=== PATIENT | female | born 1960 | race Caucasian/White ===

== ENCOUNTER 2016-10-12 10:44 | Inpatient (IN) | payer OTHER ==
[~2016-10-12] VITALS: Ht 162.6 cm; Wt 85.7 kg
[2016-10-12 11:39] LABS: BASOPHILS 0.7 % (0-2); EOSINOPHILS 0 % (0-7); HEMATOCRIT 46.2 % (36.0-48.0); HEMOGLOBIN 15.4 g/dL (12-16); IMMATURE GRANULOCYTES 0.3 % (0-5); LYMPHOCYTES 23.6 % (15-50); MCH 30.1 pg (26.0-34.0); MCHC 33.3 g/dL (31.0-37.0); MCV 90.2 fL (80.0-100.0); MEAN PLATELET VOLUME 10.6 fL (7.4-10.4); MONOCYTES 5.6 % (2-11); NEUTROPHILS 69.8 % (40-80); RBC 5.12 10x6/uL (4.00-5.40); RDW 12.9 % (11.5-14.5); WBC 3.1 10x3/uL (4.8-10.8)
[2016-10-12 11:47] LABS: PLATELET COUNT 74 10x3/uL (130-400)
[2016-10-12 11:55] LABS: ANION GAP 15.1 mmol/L (8-16); BILIRUBIN - TOTAL 0.66 mg/dL (0.2-1.3); CALCIUM 8.6 mg/dL (8.5-10.1); CARBON DIOXIDE 23.9 mmol/L (21.0-32.0); CREATININE - SERUM 0.9 mg/dL (0.6-1.3); PROTEIN - SERUM 6.7 g/dL (6.4-8.2)
[2016-10-12 12:00] LABS: PLATELET ESTIMATE DECREASED
[2016-10-12 13:35] LABS: APPEARANCE CLOUDY (CLEAR); BACTERIA MODERATE /hpf (NONE SEEN); BILIRUBIN NEGATIVE (NEGATIVE); CALCIUM OXALATE CRYSTALS 25-50 /hpf (NONE SEEN); COLOR AMBER (YELLOW); EPITHELIAL CELLS 0-5 /hpf (0-5); GLUCOSE NEGATIVE (NEGATIVE); KETONE SMALL mg/dL (NEGATIVE); LEUKOCYTE ESTERASE NEGATIVE (NEGATIVE); MUCUS <1+ /lpf (NONE SEEN); NITRITE NEGATIVE (NEGATIVE); PROTEIN 1+ mg/dL (NEGATIVE); RED CELLS - URINE RARE /hpf (0-5); SPECIFIC GRAVITY 1.025 (1.005-1.020); UROBILINOGEN NORMAL (NORMAL); WHITE CELLS - URINE 0-5 /hpf (0-5)
--- NOTE | 2016-10-12 16:19 | NUR ---
PATIENT RECEIVED TO FLOOR FROM ER VIA STRETCHER. TRANSFERRED SELF TO BED AND POSITIONED SELF FOR COMFORT. ORIENTED TO ROOM. SIDE RAILS UP X2. BED IN LOW POSITION. CALL LIGHT IN REACH.
[2016-10-12] MEDS ORDERED: MULTIPLE VITAMI1 TA1 PO (16:25)
[2016-10-12] MEDS ORDERED: BIOTIN5 MG PO (16:25)
[2016-10-12] MEDS ORDERED: MELATONIN10 M1 PO (16:25)
[2016-10-12] MEDS ORDERED: VITAMIN B-121000 MCG PO (16:26)
[2016-10-12] MEDS ORDERED: OYSCO 500+D TAB1 TAB PO (16:26)
[2016-10-12 16:27] VITALS: BP 99/56
[2016-10-12 16:28] VITALS: BP 99/56; BMI 32.5
--- NOTE | 2016-10-12 16:42 | NUR ---
IVF INITIATED PER ORDER TO RIGHT AC IV. IV PATENT. NO REDNESS OR INFLAMMATION NOTED TO SITE. FLUSHES EASY. SIDE RAILS UP X2. BED IN LOW POSITION. CALL LIGHT IN REACH.
--- NOTE | 2016-10-12 18:15 | NUR ---
PATIENT IN LOW HINKLE POSITION RESTING QUIETLY WITH EYES CLOSED. RESPIRATIONS EVEN AND UNLABORED. SIDE RAILS UP X2. BED IN LOW POSITION. CALL LIGHT IN REACH.
--- NOTE | 2016-10-12 19:50 | NUR ---
PATIENT RESTING IN BED WITH EYES CLOSED AND GUEST AT BEDSIDE. NO VISIBLE SIGNS OF DISTRESS. BED IN LOWEST POSITION AND CALL LIGHT WITHIN REACH.
[2016-10-12 20:00] VITALS: BP 95/40
--- NOTE | 2016-10-12 20:45 | NUR ---
I ASSISTED THE PATIENT TO THE RESTROOM AND SHE WAS VOMITING. THE PATIENT STATED "THE ZOFRAN IS NOT WORKING". I CALLED DR. MEDINA WHO ORDERED PHENERGAN IM.
[2016-10-12 21:23] LABS: APPEARANCE HAZY (CLEAR); BILIRUBIN NEGATIVE (NEGATIVE); COLOR DK YELLOW (YELLOW); GLUCOSE NEGATIVE (NEGATIVE); KETONE MODERATE mg/dL (NEGATIVE); LEUKOCYTE ESTERASE TRACE (NEGATIVE); NITRITE POSITIVE (NEGATIVE); PROTEIN TRACE mg/dL (NEGATIVE); SPECIFIC GRAVITY 1.025 (1.005-1.020); UROBILINOGEN NORMAL (NORMAL)
[2016-10-12 21:24] LABS: BACTERIA MODERATE /hpf (NONE SEEN); EPITHELIAL CELLS 0-5 /hpf (0-5); MUCUS <1+ /lpf (NONE SEEN); RED CELLS - URINE NONE SEEN /hpf (0-5); WHITE CELLS - URINE 0-5 /hpf (0-5)
[2016-10-13] VITALS (7 sets, daily range): BP systolic 80–103; BP diastolic 33–58
[2016-10-13 05:53] LABS: ALBUMIN 2.5 g/dL (3.4-5.0); ALKALINE PHOSPHATASE 77 U/L (46-116); ALT (SGPT) 50 U/L (10-68); BILIRUBIN - TOTAL 0.56 mg/dL (0.2-1.3); CALC OSMOLALITY 280 mosm/kg (275-300); CALCIUM 8.4 mg/dL (8.5-10.1); CARBON DIOXIDE 27.1 mmol/L (21.0-32.0); CHLORIDE - SERUM 106 mmol/L (98-107); CREATININE - SERUM 0.7 mg/dL (0.6-1.3); GLUCOSE 93 mg/dL (74-106); POTASSIUM - SERUM 3.9 mmol/L (3.5-5.1); SODIUM 140 mmol/L (136-145); UREA NITROGEN 17 mg/dL (7-18); eGFR NON AFRICAN AMERICAN > 90 mL/min (90-120)
[2016-10-13 06:02] LABS: HEMATOCRIT 42.5 % (36.0-48.0); MCH 29.9 pg (26.0-34.0); MCHC 32.9 g/dL (31.0-37.0); MCV 90.6 fL (80.0-100.0); MEAN PLATELET VOLUME 11.7 fL (7.4-10.4); PLATELET COUNT 77 10x3/uL (130-400); RBC 4.69 10x6/uL (4.00-5.40); RDW 13.1 % (11.5-14.5); WBC 2.9 10x3/uL (4.8-10.8)
[2016-10-13 06:03] LABS: INR 0.97 (0.85-1.17); PROTIME 12.7 SECONDS (11.6-15.0)
[2016-10-13 06:04] LABS: APTT 35.6 SECONDS (22.8-39.4)
[2016-10-13 06:18] LABS: D-DIMER-QUANTITATIVE 7.05 ug/mLFEU (0.20-0.54)
[2016-10-13 06:51] LABS: LYMPHOCYTES 25 % (15-50); NEUTROPHILS 55 % (40-80); PLATELET ESTIMATE DECREASED
--- NOTE | 2016-10-13 07:41 | NUR ---
AWAKE AND ALERT. ORIENTED X3. C/O HEADACHE THIS AM. WILL MONITOR. LUNGS ARE CLEAR BIALTERALLY, NO COUGH NOTED. SKIN IS INTACT WITHOUT REDNESS. SCANT EDEMA NOTED TO LOWER EXTREMETY. IV TO RIGHT AC IS PATENT WITHOUT REDNESS AT INSERTION SITE. DENIES NEEDS. BP LOW THIS AM.
--- NOTE | 2016-10-13 09:12 | NUR ---
* Is the patient Alert and Oriented? Yes 0 * How many steps to enter\exit or inside your home? 3 FLIGHT 0 * PCP [facility] 0 * [facility] [address] * Preadmission Environment Home Alone 0 * ADLs Independent 0 * Equipment None 0 * Community resources currently utilized None 0 * Additional services required to return to the preadmission environment? No 0 * Can the patient safely return to the preadmission environment? Yes 0 * Has this patient been hospitalized within the prior 30 days at any hospital? No 0 Grand Total: 0 Patient Name: WAQAS POOL Admission Status: ER Accout number: [id number] Admission Date: 10-12-2016 : 1960 Admission Diagnosis: Attending: MERCEDES Current LOS: 1 Anticipated DC Date: Planned Disposition: Primary Insurance: [facility] [place] Discharge Planning Comments: CM met with patient to assess discharge planning/needs. Patient states her discharge plan is to return home where she lives independently & is safe. She states that she has 3 flights of stairs and is fine with them. She stated that she would have a friend drive her home but would not give a name. She denies any CM/HH needs at this time. CM will continue to follow and assist as needed. PCP: [facility] [address] [place] [employer] Supervisor: Almaz Pinzon
--- NOTE | 2016-10-13 10:00 | NUR ---
ATE ALMOST ALL OF BREAKFAST. DENIES NEEDS. NO C/O AT THIS TIME.
--- NOTE | 2016-10-13 11:08 | NUR ---
NUTRITION MONITORING & EVAL. PT WITH HISTORY OF GASTRIC SLEEVE. REQUESTING PROTEIN SUPPLEMENT. PROVIDED PROTEINEX LIQUID SUPPLEMENT/[address] FOLLOWING
--- NOTE | 2016-10-13 15:33 | NUR ---
TEMP 103. BP 107/33. GIVEN 800 MG IBUPORFEN PO AND STARTED LEVAQUIN. WILL MONITOR.
--- NOTE | 2016-10-13 15:43 | NUR ---
TEMP UP TO 103.1. WILL GIVE LEVAQUIN AND IBUPROFEN. WILL MONITOR.
--- NOTE | 2016-10-13 16:45 | NUR ---
TEMP DOWN TO 100.5 BP AT 80/42. CHEIKH WILCOX NOTIFIED OF SAME. NEW ORDERS RECEIVED TO GIVE BOLUS.
--- NOTE | 2016-10-13 18:08 | NUR ---
REQUESTED AND GIVEN ONE HYDROCODONE PO FOR C/O HEADACHE AND NECK PAIN LEVEL 8. ALSO GIVEN 25MG PHENERGRAN IM FOR CONTINUED C/O NAUSEA. WILL MONITOR.
--- NOTE | 2016-10-13 19:55 | NUR ---
LYING IN BED AWAKE, ASSESSMENT COMPLETED, NO ACUTE DISTRESS NOTED, VSS, DENIES PAIN OR NEEDS AT THIS TIME, IV INFUSING TO R AC, SR'S UP, CL IN REACH, WILL MONITOR
--- NOTE | 2016-10-13 21:40 | NUR ---
MEDS GIVEN PER MAR, HÉCTOR WELL, DENIES NEEDS, FALL PRECAUTIONS IN PLACE, CL IN REACH
--- NOTE | 2016-10-13 23:50 | NUR ---
RESTING WITH EYES CLOSED, RESP WITH EASE, NO DISTRESS NOTED, SR'S UP, CL IN REACH
[2016-10-14] VITALS: BP 77/46
--- NOTE | 2016-10-14 01:27 | NUR ---
RESTING WITH EYES CLOSED, NO DISTRESS NOTED, FALL PRECAUTION IN PLACE, CL IN REACH
[2016-10-14 04:00] VITALS: BP 97/51
[2016-10-14 05:04] LABS: BASOPHILS 1.1 % (0-2); EOSINOPHILS 0 % (0-7); HEMATOCRIT 38.9 % (36.0-48.0); HEMOGLOBIN 12.6 g/dL (12-16); IMMATURE GRANULOCYTES 0.4 % (0-5); LYMPHOCYTES 25.9 % (15-50); MCH 29.6 pg (26.0-34.0); MCHC 32.4 g/dL (31.0-37.0); MCV 91.5 fL (80.0-100.0); MEAN PLATELET VOLUME 11.7 fL (7.4-10.4); MONOCYTES 5.6 % (2-11); RBC 4.25 10x6/uL (4.00-5.40); RDW 13.2 % (11.5-14.5); WBC 2.7 10x3/uL (4.8-10.8)
[2016-10-14 05:12] LABS: PLATELET COUNT 55 10x3/uL (130-400)
[2016-10-14 05:31] LABS: ALBUMIN 1.9 g/dL (3.4-5.0); ANION GAP 12.3 mmol/L (8-16); BILIRUBIN - TOTAL 0.42 mg/dL (0.2-1.3); CALCIUM 7.7 mg/dL (8.5-10.1); CARBON DIOXIDE 23.6 mmol/L (21.0-32.0); POTASSIUM - SERUM 3.9 mmol/L (3.5-5.1); PROTEIN - SERUM 4.8 g/dL (6.4-8.2)
[2016-10-14 05:32] LABS: CREATININE - SERUM 0.9 mg/dL (0.6-1.3)
--- NOTE | 2016-10-14 07:30 | NUR ---
AWAKE AND ALERT. ORIENTED X3. NO C/O AT THIS TIME. LUNGS ARE CLEAR BILATERALLY, OCCASSIONAL DRY COUGH NOTED. SKIN IS INTACT WITHOUT REDNESS. SCANT EDEMA NOTED TO BILATERAL LE. WILL MONITOR. IV TO RIGHT AC IS PATENT WITHOUT REDNESS AT INSERTION SITE. DENIES NEEDS AT THIS TIME.
--- NOTE | 2016-10-14 09:00 | NUR ---
ATE SOME OF BREAKFAST. STATED SHE IS ACTUALLY HUNGRY THIS AM. WILL MONITOR.
[2016-10-14 09:17] VITALS: BP 83/42
[2016-10-14 09:31] LABS: INR 1.09 (0.85-1.17)
[2016-10-14 09:34] LABS: APTT 43.9 SECONDS (22.8-39.4)
[2016-10-14 10:19] LABS: HEPATITIS C ANTIBODY <0.1 (0.0-0.9)
--- NOTE | 2016-10-14 11:23 | NUR ---
RESTING QUIETLY WITH EYES CLOSED. DENIES NEEDS.
--- NOTE | 2016-10-14 11:51 | NUR ---
IV SITED TO RIGHT FOREARM AFTER ONE ATTEMPT WITH 20 G. OLD SITE STILL PATENT JUST BEEPS WITH PRESSURE. LEFT INTACT.
[2016-10-14 11:54] VITALS: BP 80/46
[2016-10-14 15:31] VITALS: BP 95/56
--- NOTE | 2016-10-14 18:58 | NUR ---
DIDN'T EAT BUT 2 BITES OF SUPPER. NEEDS TO BE NPO FOR CT OF ABDOMEN. NO CHANGES AT THIS TIME. DENIES NEEDS.
[2016-10-14 23:11] VITALS: BP 94/39
[2016-10-15] VITALS (8 sets, daily range): BP systolic 78–112; BP diastolic 49–93
--- NOTE | 2016-10-15 03:50 | NUR ---
SERA RETURNED PAGE AND ORDERED TORADOL IM.
[2016-10-15 05:09] LABS: BASOPHILS 1.4 % (0-2); EOSINOPHILS 0 % (0-7); HEMATOCRIT 35.4 % (36.0-48.0); HEMOGLOBIN 11.7 g/dL (12-16); IMMATURE GRANULOCYTES 0.6 % (0-5); LYMPHOCYTES 35.6 % (15-50); MCH 29.5 pg (26.0-34.0); MCHC 33.1 g/dL (31.0-37.0); MEAN PLATELET VOLUME 12.2 fL (7.4-10.4); MONOCYTES 11.4 % (2-11); PLATELET COUNT 60 10x3/uL (130-400); RBC 3.97 10x6/uL (4.00-5.40)
[2016-10-15 05:22] LABS: MCV 89.2 fL (80.0-100.0); WBC 3.5 10x3/uL (4.8-10.8)
[2016-10-15 05:24] LABS: ALBUMIN 1.7 g/dL (3.4-5.0); ALKALINE PHOSPHATASE 63 U/L (46-116); ALT (SGPT) 47 U/L (10-68); CALC OSMOLALITY 281 mosm/kg (275-300); CALCIUM 7.5 mg/dL (8.5-10.1); CARBON DIOXIDE 21.4 mmol/L (21.0-32.0); CHLORIDE - SERUM 111 mmol/L (98-107); CREATININE - SERUM 0.8 mg/dL (0.6-1.3); GLUCOSE 98 mg/dL (74-106); PROTEIN - SERUM 4.1 g/dL (6.4-8.2); SODIUM 141 mmol/L (136-145); UREA NITROGEN 16 mg/dL (7-18); eGFR NON AFRICAN AMERICAN 79 mL/min (90-120)
[2016-10-15 05:30] LABS: POTASSIUM - SERUM 3.3 mmol/L (3.5-5.1)
[2016-10-15 05:59] LABS: APTT 43.2 SECONDS (22.8-39.4); INR 1.2 (0.85-1.17); PROTIME 15.1 SECONDS (11.6-15.0)
--- NOTE | 2016-10-15 07:48 | NUR ---
PRN ZOFRAN ADMINISTERED AT THIS TIME FOR NAUSEA WITHOUT EMESIS. PT REMAINS NPO FOR BONE MARROW BIOPSY. WILL CONTINUE WITH PLAN OF CARE. CALL LIGHT IN REACH.
--- NOTE | 2016-10-15 08:15 | NUR ---
PT TAKEN FOR BONE MARROW BIOPSY AT THIS TIME. WILL MONITOR PT WHEN SHE RETURNS TO FLOOR.
--- NOTE | 2016-10-15 09:25 | NUR ---
BACK TO ROOM FROM BONE MARROW BIOPSY AT THIS TIME. VITAL SIGNS SEE FLOWSHEET. OXYGEN ON 2L VIA NC PT IS STILL LETHARGIC. CALL LIGHT IN REACH, WILL CONTINUE WITH PLAN OF CARE.
--- NOTE | 2016-10-15 10:05 | NUR ---
FLUID BOLUS INITIATED AT THIS TIME. BP 79/49 AND HEART RATE 75.
--- NOTE | 2016-10-15 11:09 | NUR ---
BOLUS COMPLETE AT THIS TIME. BP 94/57 AND HEART RATE 76.
[2016-10-15 17:12] LABS: HEPARIN INDUCED PLATELET AB 0.268 OD (0.000-0.400); PLT AB - HLA CLASS 1 Negative (Negative); PLT AB - IIb IIIa Negative (Negative); PLT AB - Ia IIa Negative (Negative); PLT AB - Ib IX Negative (Negative)
--- NOTE | 2016-10-15 19:00 | NUR ---
BEDSIDE REPORT RECEIVED AND CARE OF PT ASSUMED. PT LYING IN SUPINE POSITION WITH EYES CLOSED. IV IN LEFT FA PATENT WITH NS INFUSING AT 100 ML / HR. WILL MONITOR CLOSELY FOR NEEDS.
--- NOTE | 2016-10-15 21:23 | NUR ---
HS MEDICATIONS GIVEN. WILL CONTINUE TO MONITOR FOR NEEDS.
[2016-10-16] VITALS: BP 100/62
--- NOTE | 2016-10-16 02:30 | NUR ---
PT RESTING QUIETLY ON LEFT SIDE WITH UNLABORED BREATHING. O2 IN USE AT 2L VIA NC. WILL CONTINUE TO MONITOR FOR NEEDS.
[2016-10-16 04:00] VITALS: BP 105/67
[2016-10-16 05:40] LABS: BASOPHILS 2.1 % (0-2); EOSINOPHILS 0.2 % (0-7); HEMATOCRIT 35.2 % (36.0-48.0); IMMATURE GRANULOCYTES 0.2 % (0-5); LYMPHOCYTES 56.6 % (15-50); MCH 30.1 pg (26.0-34.0); MCHC 34.1 g/dL (31.0-37.0); MCV 88.2 fL (80.0-100.0); MEAN PLATELET VOLUME 11.5 fL (7.4-10.4); MONOCYTES 14.7 % (2-11); NEUTROPHILS 26.2 % (40-80); PLATELET COUNT 69 10x3/uL (130-400); RBC 3.99 10x6/uL (4.00-5.40); RDW 13.5 % (11.5-14.5)
[2016-10-16 05:42] LABS: WBC 5.3 10x3/uL (4.8-10.8)
[2016-10-16 06:24] LABS: ALBUMIN 1.5 g/dL (3.4-5.0); ALKALINE PHOSPHATASE 62 U/L (46-116); ALT (SGPT) 45 U/L (10-68); CALC OSMOLALITY 280 mosm/kg (275-300); CALCIUM 7.7 mg/dL (8.5-10.1); CARBON DIOXIDE 22.5 mmol/L (21.0-32.0); CHLORIDE - SERUM 112 mmol/L (98-107); CREATININE - SERUM 0.6 mg/dL (0.6-1.3); GLUCOSE 94 mg/dL (74-106); POTASSIUM - SERUM 3.7 mmol/L (3.5-5.1); PROTEIN - SERUM 3.9 g/dL (6.4-8.2); SODIUM 141 mmol/L (136-145); UREA NITROGEN 12 mg/dL (7-18); eGFR NON AFRICAN AMERICAN > 90 mL/min (90-120)
--- NOTE | 2016-10-16 07:35 | NUR ---
RESTING, SOME COMPLAINTS OF PAIN AROUND IV SITE, IV REMOVED AND STARTED USING OTHER IV, DENIES OTHER NEEDS, WILL CONTINUE TO MONITOR
[2016-10-16 07:40] VITALS: BP 102/59
[2016-10-16 12:21] VITALS: Ht 162.6 cm; Wt 85.7 kg
[2016-10-16 12:24] VITALS: BP 105/63
--- NOTE | 2016-10-16 13:15 | NUR ---
IV BAG SPIKED AT THIS TIME. DENIES NEEDS AT THIS TIME. ON TELEPHONE WITH RESPIRATIONS EVEN AND NON LABORED. CALL LIGHT IN REACH, WILL CONTINUE WITH PLAN OF CARE.
[2016-10-16 15:34] VITALS: BP 102/60
[2016-10-16 19:00] VITALS: BP 95/60
--- NOTE | 2016-10-16 19:00 | NUR ---
BEDSIDE REPORT RECEIVED AND CARE OF PT ASSUMED. PT LYING IN SUPINE POSITION VISITING WITH SPOUSE. IV IN RIGHT AC PATENT WITH NS INFUSING AT 100 ML / HR. NO C/O OF PAIN AT THIS ASSESSMENT. WILL MONITOR CLOSELY FOR NEEDS.
--- NOTE | 2016-10-16 21:00 | NUR ---
GAVE LEMON ORUTSARARMIUT SODA PER REQUEST. WILL CONTINUE TO MONITOR FOR NEEDS.
--- NOTE | 2016-10-16 21:41 | NUR ---
HS MEDICATIONS GIVEN. WILL CONTINUE TO MONITOR FOR NEEDS.
[2016-10-17] VITALS: BP 103/57
[2016-10-17 04:00] VITALS: BP 108/68
--- NOTE | 2016-10-17 04:31 | NUR ---
PT C/O HEADACHE AND NAUSEA. GAVE ZOFRAN AND NORCO 5 PER PRN ORDER. PT ALSO ASKING ABOUT DUCOLAX SUPPOSITORY FOR CONSTIPATION...TOLD WILL REQUEST ORDER FROM THIS AM. WILL CONTINUE TO MONITOR FOR NEEDS.
[2016-10-17 05:38] LABS: BASOPHILS 2.6 % (0-2); EOSINOPHILS 0.2 % (0-7); HEMATOCRIT 33.8 % (36.0-48.0); HEMOGLOBIN 11.5 g/dL (12-16); IMMATURE GRANULOCYTES 0.2 % (0-5); MCH 29.8 pg (26.0-34.0); MCV 87.6 fL (80.0-100.0); MEAN PLATELET VOLUME 12.1 fL (7.4-10.4); PLATELET COUNT 81 10x3/uL (130-400); RBC 3.86 10x6/uL (4.00-5.40); RDW 13.3 % (11.5-14.5); WBC 6.1 10x3/uL (4.8-10.8)
[2016-10-17 05:51] LABS: ALBUMIN 1.5 g/dL (3.4-5.0); ALKALINE PHOSPHATASE 61 U/L (46-116); ALT (SGPT) 38 U/L (10-68); CALCIUM 7.5 mg/dL (8.5-10.1); CHLORIDE - SERUM 112 mmol/L (98-107); CREATININE - SERUM 0.6 mg/dL (0.6-1.3); GLUCOSE 88 mg/dL (74-106); POTASSIUM - SERUM 3.3 mmol/L (3.5-5.1); PROTEIN - SERUM 3.8 g/dL (6.4-8.2); SODIUM 144 mmol/L (136-145); eGFR NON AFRICAN AMERICAN > 90 mL/min (90-120)
[2016-10-17 05:58] LABS: CALC OSMOLALITY 283 mosm/kg (275-300); UREA NITROGEN 8 mg/dL (7-18)
--- NOTE | 2016-10-17 06:28 | NUR ---
POTASSIUM LEVEL 3.3 THIS AM REQUIRING COVERAGE WITH 40 MEQ POTASSIUM PO PER PROTOCOL. GIVEN AND WILL RE-DRAW IN 4 HOURS.
--- NOTE | 2016-10-17 07:35 | NUR ---
SLEEPING, BED LOWEST POSITION, CALL LIGHT IN REACH, BREATHING EVEN UNLABORED, WILL CONTINUE TO MONITOR
[2016-10-17 07:36] VITALS: BP 101/64
[2016-10-17 11:18] LABS: FUNGUS STAIN Final report (())
[2016-10-17 12:09] VITALS: BP 119/67
[2016-10-17 15:14] VITALS: BP 108/62
[2016-10-17 16:14] LABS: EHRLICHIA CHAFF IGG Negative (Neg:<1:64); EHRLICHIA CHAFF IGM Negative (Neg:<1:20); HGE IGG TITER Negative (Neg:<1:64); HGE IGM TITER Negative (Neg:<1:20)
--- NOTE | 2016-10-17 19:18 | NUR ---
STATES REDNESS ON FACE AND BODY IS ABNORMAL
[2016-10-17 20:00] VITALS: BP 110/67
--- NOTE | 2016-10-17 20:00 | NUR ---
PT. IN BED WITH HOB UP FOR COMFORT. MALE VISITOR IN ROOM AND NO VOICED NEEDS AT THIS TIME. ASSESSMENT COMPLETED. CALL LIGHT WITHIN REACH.
[2016-10-18 00:11] VITALS: BP 114/67
[2016-10-18 03:09] LABS: RMSF IGM 0.41 index (0.00-0.89)
[2016-10-18 04:00] VITALS: BP 118/64
[2016-10-18 04:57] LABS: BASOPHILS 1.4 % (0-2); EOSINOPHILS 0.8 % (0-7); HEMATOCRIT 35.7 % (36.0-48.0); IMMATURE GRANULOCYTES 0.2 % (0-5); LYMPHOCYTES 76.6 % (15-50); MCH 29.7 pg (26.0-34.0); MCHC 33.6 g/dL (31.0-37.0); MCV 88.4 fL (80.0-100.0); MEAN PLATELET VOLUME 11.1 fL (7.4-10.4); MONOCYTES 9.9 % (2-11); NEUTROPHILS 11.1 % (40-80); PLATELET COUNT 127 10x3/uL (130-400); RBC 4.04 10x6/uL (4.00-5.40); RDW 13.4 % (11.5-14.5); WBC 9.2 10x3/uL (4.8-10.8)
[2016-10-18 05:14] LABS: ALBUMIN 1.5 g/dL (3.4-5.0); ALKALINE PHOSPHATASE 56 U/L (46-116); ALT (SGPT) 35 U/L (10-68); BILIRUBIN - TOTAL 0.38 mg/dL (0.2-1.3); CALC OSMOLALITY 283 mosm/kg (275-300); CALCIUM 7.9 mg/dL (8.5-10.1); CARBON DIOXIDE 26.8 mmol/L (21.0-32.0); CHLORIDE - SERUM 112 mmol/L (98-107); CREATININE - SERUM 0.5 mg/dL (0.6-1.3); GLUCOSE 82 mg/dL (74-106); POTASSIUM - SERUM 3.3 mmol/L (3.5-5.1); PROTEIN - SERUM 4.1 g/dL (6.4-8.2); SODIUM 144 mmol/L (136-145); UREA NITROGEN 8 mg/dL (7-18); eGFR NON AFRICAN AMERICAN > 90 mL/min (90-120)
--- NOTE | 2016-10-18 08:13 | NUR ---
AWAKE AND ALERT. ORIENTED X3. LUNGS ARE CLEAR BILATERTALLY, NO COUGH NOTED. SKIN IS INTACT WITHOUT REDNESS. NO IV AT THIS TIME. REPORTS DIARRHEA YESTERDAY. WILL MONITOR. DENIES NEEDS.
[2016-10-18 08:59] VITALS: BP 109/64
--- NOTE | 2016-10-18 10:45 | NUR ---
C/O SOME NAUSEA. REQUESTED AND GIVEN PHENERGAN IM FOR SAME. WILL MONITOR.
[2016-10-18 13:13] VITALS: BP 121/78
--- NOTE | 2016-10-18 14:00 | NUR ---
DISCHARGED TO HOME AMBULATORY WITH FAMILY. DISCHARGE INSTRUCTIONS GIVEN BOTH VERBALLY AND WRITTEN. ALL QUESTIONS ANSWERED. PATIENT VERBALIZED UNDERSTANDING OF SAME. NEEDED MEDS CALLED TO PHARMACY OF CHOICE.
[2016-10-24 13:16] LABS: FUNGUS MYCOLOGY CULTURE Preliminary report (())
== END 2016-10-18 14:00 | disposition home or self-care (01) | DRG 809 ==
LOC: D.ER 10:44 → D.MS 15:24
PROVIDERS: Family Medicine; Family Medicine Adult Medicine; Internal Medicine Hematology & Oncology; Specialist; Student in an Organized Health Care Education/Training Program; ADMIT Family Medicine
PROC: 07DR3ZX Extraction of Iliac Bone Marrow, Percutaneous Approach, Diagnostic (ICD-10-PCS; principal; 2016-10-15)
DX: D70.3 Neutropenia due to infection (principal); N39.0 Urinary tract infection, site not specified; B37.0 Candidal stomatitis; D61.818 Other pancytopenia; E86.0 Dehydration; R50.81 Fever presenting with conditions classified elsewhere

== ENCOUNTER 2018-11-12 08:00 | Outpatient (CLI) | payer OTHER ==
[2016-10-16 12:21] VITALS: BMI 32.4
[~2018-11-12 08:00] MED LIST: BIOTIN5 MG PO; MELATONIN10 M1 PO; MULTIPLE VITAMI1 TA1 PO; OYSCO 500+D TAB1 TAB PO; VITAMIN B-121000 MCG PO
== END 2018-11-12 23:59 | disposition home or self-care (01) ==
LOC: D.MAMMO 08:00
PROVIDERS: ATTEND Internal Medicine
DX: Z12.31 Encounter for screening mammogram for malignant neoplasm of breast (principal)